=== PATIENT | male | born 1965 | race African-American/Black ===

== ENCOUNTER 2018-09-23 14:26 | Emergency (ER) | payer OTHER ==
[~2018-09-23] VITALS: Ht 193 cm; Wt 113.4 kg
[2018-09-23] MEDS ORDERED: ALBUTEROL SULFATE 2.5 MG/3 ML NEBU ONE ×3 (14:42→21:22)
[2018-09-23] MEDS ORDERED: IPRATROPIUM BROMIDE 0.5 MG/2.5 ML NEBU ONE ×2 (14:42→21:22)
[2018-09-23] MEDS ORDERED: MAGNESIUM SULFATE 2 GM in IV DEXTROSE 5% 100 ML IV ONE (14:45)
[2018-09-23] MEDS ORDERED: ALBUTEROL SULFATE 2.5 MG/3 ML NEBU NEB ONE ×3 (14:45→21:15)
[2018-09-23] MEDS ORDERED: IPRATROPIUM BROMIDE 0.5 MG/2.5 ML NEBU NEB ONE ×2 (14:45→21:15)
[2018-09-23] MEDS ORDERED: MAGNESIUM SULFATE/D5W 200 ML ONE (14:49)
[2018-09-23 14:52] LABS: BASOPHILS % (AUTO) 0.2 % (0.0-2.0); EOSINOPHILS # (AUTO) 0.1 K/uL (0.0-0.7); EOSINOPHILS % (AUTO) 0.6 % (0.0-7.0); HEMATOCRIT 39.4 % (36.7-47.1); HEMOGLOBIN 13.3 g/dL (12.5-16.3); LYMPHOCYTES # (AUTO) 1.9 K/uL (20.0-40.0); LYMPHOCYTES % (AUTO) 14.4 % (20.5-51.5); MEAN CORPUSCULAR HEMOGLOBIN 30.7 uug (23.8-33.4); MEAN CORPUSCULAR HGB CONC 34 g/dL (32.5-36.3); MEAN CORPUSCULAR VOLUME 91.2 fL (73.0-96.2); MONOCYTES # (AUTO) 1.3 K/uL (2.0-10.0); MONOCYTES % (AUTO) 10.3 % (0.0-11.0); NEUTROPHILS # (AUTO) 9.6 K/uL (1.8-8.9); NEUTROPHILS % (AUTO) 74.5 % (38.5-71.5); PLATELET COUNT (AUTO) 226 K/uL (152-348); RED BLOOD CELL COUNT(AUTO) 4.32 MIL/uL (4.06-5.63); WHITE BLOOD COUNT (AUTO) 12.8 K/uL (3.6-10.2)
--- NOTE | 2018-09-23 14:56 | NUR ---
PT IS IN ROOM #2A. DR ARDON EVALUATED THE PT.
[2018-09-23 14:59] LABS: CREATININE 0.9 mg/dL (0.6-1.3); POTASSIUM 3.7 mmol/L (3.5-5.1)
[2018-09-23 15:12] LABS: BILIRUBIN,DIRECT 0.1 mg/dL (0.0-0.2); BILIRUBIN,TOTAL 0.3 mg/dL (0.2-1.0)
--- NOTE | 2018-09-23 15:28 | NUR ---
PT TAKES BP MEDS BUT IS UNABLE TO RECALL NAME OF MED.
[2018-09-23] MEDS ORDERED: BP MED PO (15:30)
[2018-09-23] MEDS ORDERED: methylPREDNISolone SOD SUCC 125 MG/2 ML VIAL IV ONE (17:00)
[2018-09-23] MEDS ORDERED: methylPREDNISolone SOD SUCC 125 MG/2 ML VIAL ONE (17:05)
[2018-09-23] MEDS ORDERED: PANTOPRAZOLE SODIUM 40 MG VIAL ONE (17:10)
[2018-09-23] MEDS ORDERED: MAG HYDROX/AL HYDROX/SIMETH 30 ML LIQUID UDC ONE (17:11)
[2018-09-23] MEDS ORDERED: MAG HYDROX/AL HYDROX/SIMETH 30 ML LIQUID UDC PO ONE (17:15)
[2018-09-23] MEDS ORDERED: PANTOPRAZOLE SODIUM 40 MG VIAL IV ONE (17:15)
--- NOTE | 2018-09-23 19:09 | NUR ---
REPORT WAS GIVEN TO [employer] [facility]PAIRER RN CARLOS.
--- NOTE | 2018-09-23 19:14 | NUR ---
RECEIVED SHIFT REPORT FROM WONG JACKSON. RECEIVED PT RESTING IN BED - NO APPARENT DISTRESS AT THIS TIME.
[2018-09-23] MEDS ORDERED: Z GUARD REMEDY PASTE 57 GM TUBE TOP PRN (19:15)
[2018-09-23] MEDS ORDERED: ACETAMINOPHEN 325 MG TABLET PO PRN (19:15)
[2018-09-23] MEDS ORDERED: HYDROCODONE/APAP 5-325MG TABLET PO PRN (19:15)
[2018-09-23] MEDS ORDERED: ONDANSETRON 4 MG/2 ML VIAL IV PRN (19:15)
[2018-09-23] MEDS ORDERED: ALBUTEROL SULFATE 2.5 MG/3 ML NEBU NEB PRN (19:45)
[2018-09-23] MEDS ORDERED: IPRATROPIUM BROMIDE 0.5 MG/2.5 ML NEBU NEB PRN (19:45)
--- NOTE | 2018-09-23 21:16 | NUR ---
RECEIVED CALL FROM DALTON (REGAL REP) [phone]. PT WILL BE TRANSFERRED TO [facility] ROOM 217-B. CALL [phone] FOR REPORT. [facility] WILL BE TRANSFERRING. ETA [phone].
--- NOTE | 2018-09-23 21:19 | NUR ---
YG CALVIN SPEAKING W/ RICK CALVIN ON THE PHONE.
--- NOTE | 2018-09-23 22:20 | NUR ---
REPORT GIVEN TO WILLIAM BACK AT [facility]. PT WILL BE ADMITTED TO ROOM 218-B.
--- NOTE | 2018-09-23 23:00 | NUR ---
PT WILL BE TRANSFERRED TO [id number].
--- NOTE | 2018-09-23 23:04 | NUR ---
PT TRANS W/ 18G IV ACCESS IN L AC UNDER CARE OF [facility] [place] [facility]
[2018-09-24] MEDS ORDERED: PANTOPRAZOLE SODIUM 40 MG VIAL IV SCH (09:00)
[2018-09-24] MEDS ORDERED: methylPREDNISolone SOD SUCC 40 MG/ML VIAL IV SCH (09:00)
== END 2018-09-23 23:05 | disposition short-term general hospital (02) ==
LOC: ER 14:28
DX: J45.902 Unspecified asthma with status asthmaticus (principal)
CPT/HCPCS: 36415; 71045; 80048; 80076; 83880; 84484 ×2; 85025; 93005; 94640 ×2; 94644; 96365; 96366; 96375; 99291; C9113; J2930; J3475; 70030-TC; A4663; J3590

== ENCOUNTER 2020-03-15 11:09 | Emergency (ER) | payer OTHER ==
[~2020-03-15] VITALS: Ht 193 cm; Wt 120.2 kg
[~2020-03-15 11:09] MED LIST: BP MED PO
--- NOTE | 2020-03-15 11:10 | NUR ---
Dr. Taylor at bedside for MSE
[2020-03-15] MEDS ORDERED: methylPREDNISolone SOD SUCC 125 MG/2 ML VIAL IV ONE (11:15)
[2020-03-15] MEDS ORDERED: IV NORMAL SALINE 1000 ML BAG IV ONE (11:15)
[2020-03-15] MEDS ORDERED: ALBUTEROL SULFATE 2.5 MG/3 ML NEBU NEB ONE (11:15)
[2020-03-15] MEDS ORDERED: MAGNESIUM SULFATE 2 GM in IV DEXTROSE 5% 100 ML IV ONE (11:15)
[2020-03-15] MEDS ORDERED: TERBUTALINE SULFATE 1 MG/1 ML VIAL SQ ONE (11:15)
[2020-03-15] MEDS ORDERED: IPRATROPIUM BROMIDE 0.5 MG/2.5 ML NEBU NEB ONE (11:15)
--- NOTE | 2020-03-15 11:15 | NUR ---
Patient ambulating with steady gait. A&O x4. c/o SOB. Patient noted grunting, no cough noted. Patient states he has hx of asthma. Patient saturation at 88% on RA. Nasal cannula applied at 2LPM, O2 went up to 95%. Patient noted taking off NC and states "I don't need this right now". explained risks / benefits, patient still took off NC. Patient denies any activity that could have triggered event. Patient states "it was hot outside that's why im short of breath". Speech is clear and able to make needs known / follow commands. Denies any N / V / D / Chest Pain. Safety precautions implemented. s/r up x2
[2020-03-15] MEDS ORDERED: TERBUTALINE SULFATE 1 MG/1 ML VIAL ONE (11:28)
[2020-03-15] MEDS ORDERED: methylPREDNISolone SOD SUCC 125 MG/2 ML VIAL ONE (11:28)
[2020-03-15] MEDS ORDERED: MAGNESIUM SULFATE/D5W 200 ML ONE (11:28)
[2020-03-15] MEDS ORDERED: IPRATROPIUM BROMIDE 0.5 MG/2.5 ML NEBU ONE (11:34)
[2020-03-15] MEDS ORDERED: ALBUTEROL SULFATE 1.25 MG/3 ML NEBU ONE (11:34)
[2020-03-15] MEDS ORDERED: PREDNISONE (11:36)
[2020-03-15] MEDS ORDERED: ALBU0.63 NEB (11:36)
[2020-03-15] MEDS ORDERED: ALBUTEROL SULFATE 2.5 MG/3 ML NEBU ONE ×2 (11:38)
[2020-03-15 11:41] LABS: BASOPHILS # (AUTO) 0.1 K/uL (0.0-8.0); BASOPHILS % (AUTO) 0.7 % (0.0-2.0); EOSINOPHILS # (AUTO) 0.3 K/uL (0.0-0.7); EOSINOPHILS % (AUTO) 3.8 % (0.0-7.0); HEMATOCRIT 41.5 % (36.7-47.1); LYMPHOCYTES # (AUTO) 1.6 K/uL (20.0-40.0); LYMPHOCYTES % (AUTO) 22.5 % (20.5-51.5); MEAN CORPUSCULAR HEMOGLOBIN 30.3 uug (23.8-33.4); MEAN CORPUSCULAR HGB CONC 34 g/dL (32.5-36.3); MEAN CORPUSCULAR VOLUME 89.7 fL (73.0-96.2); MONOCYTES # (AUTO) 0.9 K/uL (2.0-10.0); MONOCYTES % (AUTO) 12.6 % (0.0-11.0); NEUTROPHILS # (AUTO) 4.3 K/uL (1.8-8.9); NEUTROPHILS % (AUTO) 60.4 % (38.5-71.5); PLATELET COUNT (AUTO) 218 K/uL (152-348); RED BLOOD CELL COUNT(AUTO) 4.62 MIL/uL (4.06-5.63); WHITE BLOOD COUNT (AUTO) 7.2 K/uL (3.6-10.2)
[2020-03-15 12:00] LABS: CREATININE 1.2 mg/dL (0.6-1.3); POTASSIUM 4.1 mmol/L (3.5-5.1)
[2020-03-15 12:12] LABS: BILIRUBIN,DIRECT 0.2 mg/dL (0.0-0.2); BILIRUBIN,TOTAL 0.9 mg/dL (0.2-1.0); TOTAL PROTEIN, SERUM 7.7 g/dL (6.4-8.2)
--- NOTE | 2020-03-15 12:30 | NUR ---
Patient noted breathing even and unlabored. Patient states "Im feeling much better". Denies any SOB. O2 sat at 97% on RA. Provided fluids, patient tolerated well.
--- NOTE | 2020-03-15 13:53 | NUR ---
IV removed. Catheter intact and site benign. Pressure and 4x4 gauze applied to site. No bleeding noted. Patient discharged to home in stable condition. Written and verbal after care instructions given. Patient verbalizes understanding of instructions. Stressed follow up or return to ER for worsening s/s. Patient ambulating with steady gait. NAD noted
[2020-03-15 13:55] VITALS: BP 145/83
== END 2020-03-15 13:53 | disposition home or self-care (01) ==
LOC: ER 11:09
DX: J45.901 Unspecified asthma with (acute) exacerbation (principal); R06.82 Tachypnea, not elsewhere classified
CPT/HCPCS: 36415; 71045; 80048; 80076; 83880; 84484; 85025; 93005; 94640; 96365; 96366; 96372; 96375; 99285; J2930; J3105; J3475; 70030-TC; A4663; J3590